=== PATIENT | male | born 1995 | race Caucasian/White ===

== ENCOUNTER 2019-12-20 00:38 | Emergency (ER) | payer OTHER ==
[~2019-12-20] VITALS: Ht 177.8 cm; Wt 83.9 kg
[2019-12-20 00:44] VITALS: Ht 177.8 cm; Wt 83.9 kg
[2019-12-20 01:07] VITALS: BP 104/66
== END 2019-12-20 01:07 | disposition other institution (70) ==
LOC: ED 00:38
DX: Z02.89 Encounter for other administrative examinations (principal)